=== PATIENT | male | born 2000 | race Caucasian/White ===

== ENCOUNTER 2025-01-28 03:04 | Emergency (ER) | payer OTHER, SELFPAY ==
[2025-01-28] VITALS (14 sets, daily range): BP systolic 110–129; BP diastolic 67–83; PULSE 77–113; RESP 19–31; TEMP 36.8–39.5; O2SAT 94–100
--- OUTSIDE RECORDS SUMMARY | 2025-01-28 03:06 | XMS_ITS | Clinical Summary ---
Author [place] [facility] [place] [address] Address [address] [place] [id number] Care Team Providers Care Trial Consultant Name Role Phone Unknown, Notinfile Primary Care Provider Unavail able Archie Blanco MD Unavailable [phone] Allergies No known active allergies Medications No known medications Active Problems No known active problems Social History Tobacco Use Types Packs/Day Years Used Date Smoking Tobacco: Every Day Vaping Personal Safety Answer Date Recorded Getting School Help Needed Not on file 01/20 Sex and Gender Information Value Date Recorded Sex Assigned at Not on file 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 Gender Identity Not on file Sexual Orientation Not on file Obstetrics History Last Filed Vital Signs Vital Sign Reading Time Taken Comments Blood Pressure 119/71 02/25/2022 7:19 PM CDT Pulse 99 02/25/2022 7:19 PM CDT Temperature 38.7 C (101.6 F) 02/25/2022 7:19 PM CDT Respiratory Rate 16 02/25/2022 7:19 PM CDT Oxygen Saturation 98% 02/25/2022 7:19 PM CDT Inhaled Oxygen Concentration - - Weight 90.7 kg (200 lb) 02/25/2022 7:19 PM CDT Height 177.8 cm (5' 10 ) 02/25/2022 7:19 PM CDT Body Mass Index 28.7 02/25/2022 7:19 PM CDT Plan of Treatment Health Maintenance Due Date Last Done Comments Depression Screening 1999 Hepatitis C Screening 1999 DTaP/Tdap/Td Vaccine (1 - Tdap) 2010 Varicella Vaccines (1 of 2 - 13+ 2-dose series) 2011 HPV Vaccines (1 - Male 3-dose series) 2014 Hepatitis B Screening 2017 Regular Well Visit/Exam 18-64 2017 Pneumococcal vaccine <65 (1 of 2 - PCV) 2018 Covid-19 Vaccine (2 - season) 07/27/202409/2021 Influenza Vaccine (#1) 2024 10/08/2014 Insurance [facility] EPO Care Teams Trial Consultant Relationship Specialty Start Date End Date Unknown, Notinfile PCP - General 02/25/22 Archie Blanco MD Family Medicine 02/25/22
--- OUTSIDE RECORDS SUMMARY | 2025-01-28 03:06 | XMS_ITS | Referral Summary ---
Author Organization [facility] [place] [address] Address [address] [place] [id number] Care Team Providers Care Supervisor Securities Vault Name Role Phone Unknown, Notinfile Primary Care Provider Unavail able Archie Blanco MD Unavailable [phone] Allergies No known active allergies Medications No known medications Active Problems No known active problems Social History Tobacco Use Types Packs/Day Years Used Date Smoking Tobacco: Every Day Vaping Personal Safety Answer Date Recorded Getting School Help Needed Not on file 01/20 Sex and Gender Information Value Date Recorded Sex Assigned at Not on file 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
[2025-01-28 05:52] LABS: Basophils Percent Auto 0.1 % (0.2-1.2); Hemoglobin 15.3 g/dL (14.0-18.0); Immature Granulocyte Absolute 0.03 K/mm3 (0.00-0.031); Immature Granulocyte Percent A 0.4 % (0-0.5); Lymphocytes Absolute Auto 0.45 K/mm3 (0.9-3.2); Lymphocytes Percent Auto 5.8 % (18.3-44.2); Mean Corpuscular HGB Conc 34.8 g/dl (32-36); Mean Corpuscular Hemoglobin 30.4 pg (26-34); Mean Corpuscular Volume 87.5 fl (80-100); Mean Platelet Volume 9.7 fl (7.4-10.4); Monocytes Absolute Auto 0.7 K/mm3 (0.1-0.6); Neutrophils Absolute Auto 6.6 K/mm3 (1.3-6.7); Neutrophils Percent Auto 84.7 % (45.5-73.1); Platelet Count Result 178 k/mm3 (150-375); Red Blood Count 5.03 M/mm3 (4.6-6.20); Red Cell Distribution Width 11.6 % (11.5-14.5); White Blood Count 7.8 K/mm3 (4.5-10.0)
[2025-01-28] MEDS: ONDANSETRON INJ 4 MG/2 ML VIAL IV PUSH (05:54)
[2025-01-28] MEDS: SODIUM CHLORIDE 0.9% IV 1,000 ML 999 ML IV CONT ×2 (05:54→07:29)
[2025-01-28 06:01] LABS: Alanine Aminotransferase 36 U/L (6-50); Albumin Level 5.2 g/dL (3.5-5.1); Alkaline Phosphatase 45 U/L (38-126); Anion Gap 13 mmol/L (4-12); Aspartate Amino Transferase 30 U/L (17-59); Bilirubin,Total 0.8 mg/dL (0.2-1.3); Blood Urea Nitrogen 12 mg/dL (9-20); Calcium 9.1 mg/dL (8.4-10.2); Carbon Dioxide 27 mmol/L (22-30); Chloride 96 mmol/L (98-107); Estimated CRCL calculation 139 ml/min; Estimated Glomerular Filt Rate > 60; Glucose 127 mg/dL (65-110); Lipase 91 U/L (23-300); Potassium 3.8 mmol/L (3.4-5.0); Sodium 136 mmol/L (137-145)
[2025-01-28 06:27] LABS: Influenza A QL RT-PCR Positive (Negative); Influenza B QL RT-PCR Negative (Negative); RSV RNA, RT-PCR Negative (Negative); SARS-CoV-2 RNA PCR Negative (Negative)
[2025-01-28 07:02] LABS: Add Urine Microscopic? YES; Appearance Urine Clear (Clear); Bacteria Urine None Seen /hpf; Bilirubin Urine Negative (Negative); Blood Urine Negative (Negative); Color Urine Dark Yellow (Yellow); Glucose Urine UA Negative (Negative); Ketones Urine Trace mg/dL (Negative); Leukocyte Esterase Ur Negative LEU/UL (Negative); Need Manual Microscopic Reviewed; Nitrate Urine Negative (Negative); Protein Urine 2+ mg/dL (Negative); RBC Urine 0-2 /hpf (0-2); Specific Grav Ur 1.034 (1.001-1.035); Squamous Epithelial Cell Urine None Seen /hpf (Few); Urobilinogen Urine 0.2 mg/dL (<2.0); WBC Urine 0-5 /hpf (0-3); pH Urine 5.5 (5.0-9.0)
[2025-01-28] MEDS: ACETAMINOPHEN 500 MG TABLET 1000 MG PO (07:29)
--- NOTE | 2025-01-28 07:29 | ED_ITS ---
HPI - General Adult General Chief complaint: Upper Respiratory Infection Stated complaint: i think i have the flu Time Seen by Provider: 01/28/25 06:59 History of Present Illness HPI narrative: 25-year-old male presenting ED for evaluation for viral symptoms. Patient reports symptoms started on Sunday. Patient presents to the ED complaining of fevers and chills. Patient denies any associated chest pain or shortness of breath. Patient denies any associated current nausea vomiting or diarrhea. Patient did have 2 episodes of emesis. 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 Mother No problems noted. Sibling No problems noted. Grandparent Diabetes mellitus Grandparent Diabetes mellitus Social History Social History Smoking status: Former smoker (quit smoking and vaping 7 months ago. ) Tobacco type: e-cigarettes/vaping Smoking end date: 04/26/23 Alcohol intake: current Alcohol use details: occasionally Substance use: current Substance use type: marijuana Last use: rarely Do You Feel Safe in your Home?: Yes Lack of Transportation: No Lack of Food: Never True Current Housing: I Have Housing Concerned About Future Housing: No Difficulty Paying Gas/Electric Bills: No Difficulty Paying for Meds: No Currently Unemployed: No Education: Bachelor's Degree Difficulty w/ Childcare or Family Care: No Exam 2 Narrative: APPEARANCE: Well appearing, no pain, no distress, well-nourished. HEAD: normocephalic, atraumatic. EYES: PERRLA/EOMI, conjunctivae clear. NOSE: Normal no drainage EARS:TMS clear with good light reflex. THROAT: Pharynx clear, no exudate. NECK: Supple. No adenopathy, no masses. RESPIRATORY: Airway patent, respirations nonlabored. Clear to auscultation bilaterally, no rales, rhonchi, wheezing. CARDIOVASCULAR: Regular rate and rhythm without murmurs rubs or gallops. ABDOMINAL: Soft, nontender, nondistended, normal bowel sounds MUSCULOSKELETAL: Moves all extremities. Strength/ROM intact, No edema, No calf tenderness. NEURO: Alert. Cranial nerves II through XII intact. Good gait. Good coordination SKIN: Warm, dry. Normal Color Course Vital Signs Vital signs: Vital Signs Temperature 102.7 F H 01/28/25 03:09 Pulse Rate 113 H 01/28/25 03:09 Respiratory Rate 22 H 01/28/25 03:09 Blood Pressure 129/74 01/28/25 03:09 Pulse Oximetry 94 01/28/25 03:09 Oxygen Delivery Room Air 01/28/25 03:09 Temperature 98.3 F 01/28/25 09:43 Pulse Rate 77 01/28/25 09:43 Respiratory Rate 20 01/28/25 09:43 Blood Pressure 115/67 01/28/25 09:43 Pulse Oximetry 98 01/28/25 09:43 Oxygen Delivery Room Air 01/28/25 03:09 Medical Decision Making MDM Narrative Medical decision making narrative: 25-year-old male present to emergency department for evaluation for fever body aches and fatigue. Patient was febrile with a temperature of 103.1. Patient was treated Toradol and Tylenol on repeat patient's temperature was decreased to 9.5. Patient was treated with 2 L of IV fluids. Patient did feel improved with treatment. Patient is being discharged to home. Differential Diagnosis Differential Diagnosis: COVID, RSV, influenza, pneumonia Vital Signs Vital Signs: Vital Signs Temperature 102.7 F H 01/28/25 03:09 Pulse Rate 113 H 01/28/25 03:09 Respiratory Rate 22 H 01/28/25 03:09 Blood Pressure 129/74 01/28/25 03:09 Pulse Oximetry 94 01/28/25 03:09 Oxygen Delivery Room Air 01/28/25 03:09 Temperature 98.3 F 01/28/25 09:43 Pulse Rate 77 01/28/25 09:43 Respiratory Rate 20 01/28/25 09:43 Blood Pressure 115/67 01/28/25 09:43 Pulse Oximetry 98 01/28/25 09:43 Oxygen Delivery Room Air 01/28/25 03:09 Lab Data Lab results reviewed: Yes I reviewed the patient's lab results. 01/28/25 05:42 01/28/25 05:42 Labs: Lab Results 01/28/25 01/28/25 Range/Units 05:42 06:48 WBC 7.8 (4.5-10.0) K/mm3 RBC 5.03 (4.6-6.20) M/mm3 Hgb 15.3 (14.0-18.0) g/dL Hct 44.0 (42.0-52.0) % MCV 87.5 (80-100) fl MCH 30.4 (26-34) pg MCHC 34.8 (32-36) g/dl RDW 11.6 (11.5-14.5) % Plt Count 178 (150-375) k/mm3 MPV 9.7 (7.4-10.4) fl Immature Gran % (Auto) 0.4 (0-0.5) % Neut % (Auto) 84.7 H (45.5-73.1) % Lymph % (Auto) 5.8 L (18.3-44.2) % [place] % (Auto) 9.0 H (2.6-8.5) % Eos % (Auto) 0.0 (0-4.4) % Baso % (Auto) 0.1 L (0.2-1.2) % Lymph # (Auto) 0.45 L (0.9-3.2) K/mm3 [place] # (Auto) 0.7 H (0.1-0.6) K/mm3 Eos # (Auto) 0.0 (0-0.3) K/mm3 Baso # (Auto) 0.0 (0.0-0.1) K/mm3 Abs Immat Gran (auto) 0.03 (0.00-0.031) K/mm3 Absolute Neuts (auto) 6.6 (1.3-6.7) K/mm3 Absolute Nucleated RBC 0.000 (0.0-0.012) K/mm3 Nucleated RBC % 0.0 (0.0-0.2) % Sodium 136 L (137-145) mmol/L Potassium 3.8 (3.4-5.0) mmol/L Chloride 96 L (98-107) mmol/L Carbon Dioxide 27 (22-30) mmol/L Anion Gap 13 H (4-12) mmol/L BUN 12 (9-20) mg/dL Creatinine 0.83 (0.7-1.3) mg/dL Estim Creat Clear Calc 139 ml/min Estimated GFR > 60 (59 - ) Glucose 127 H (65-110) mg/dL Calcium 9.1 (8.4-10.2) mg/dL Total Bilirubin 0.8 (0.2-1.3) mg/dL AST 30 (17-59) U/L ALT 36 (6-50) U/L Alkaline Phosphatase 45 (38-126) U/L Total Protein 9.0 H (6.3-8.2) g/dL Albumin 5.2 H (3.5-5.1) g/dL Lipase 91 (23-300) U/L Urine Color Dark yellow (Yellow) Urine Appearance Clear (Clear) Urine pH 5.5 (5.0-9.0) Ur Specific [place] 1.034 (1.001-1.035) Urine Protein 2+ H (Negative) mg/dL Urine Glucose (UA) Negative (Negative) mg/dL Urine Ketones Trace H (Negative) mg/dL Ur Blood (Man) Negative (Negative) Urine Nitrate Negative (Negative) Urine Bilirubin Negative (Negative) Urine Urobilinogen 0.2 (<2.0) mg/dL Add Ur Microanalysis Reviewed Leukocyte Esterase Rfl Negative (Negative) LAURYN/UL Urine RBC 0-2 (0-2) /hpf Urine WBC 0-5 (0-3) /hpf Ur Squamous Epith Cells None seen (Few) /hpf Urine Bacteria None seen /hpf Urine Casts 3-5 Influenza A (RT-PCR) Positive A (Negative) Influenza B (RT-PCR) Negative (Negative) RSV (RT-PCR) Negative (Negative) SARS-CoV-2 RNA (RT-PCR) Negative (Negative) Discharge Plan Discharge Clinical Impression: Influenza A Patient Disposition: Home, Self-Care Condition: Stable Instructions: Antibiotic Form, Influenza (ED) Additional Instructions: Tylenol and ibuprofen for fever or body aches. Albuterol inhaler for shortness of breath, Tessalon Perles for cough. Drink plenty of fluids. Have close follow-up with your primary care physician. If you have any worsening symptoms and please call or return to the emergency department. Patient Language: Hebrew Prescriptions: New benzonatate 100 mg capsule 100 mg PO TID PRN (Reason: cough) Qty: 14 0RF albuterol sulfate 90 mcg/actuation HFA aerosol inhaler 1 puff inhalation QID Qty: 6.7 0RF acetaminophen [Tylenol 8 Hour] 650 mg tablet extended release 650 mg PO Q8H PRN (Reason: fever or pain) Qty: 30 0RF ibuprofen 600 mg tablet 600 mg PO Q6H PRN (Reason: fever or pain) Qty: 30 0RF Follow-up/Referrals: Archie Blanco MD [Primary Care Provider] -
[2025-01-28] MEDS: KETOROLAC 15 MG/ML VIAL (*BKC) IV PUSH (08:25)
--- OUTSIDE RECORDS SUMMARY | 2025-01-28 08:37 | XMS_ITS | Clinical Summary ---
Author Organization [facility] [place] [address] Address [address] [place] [phone] Care Team Providers Care Bioinformatics Computer Scientist Name Role Phone Unknown, Notinfile Primary Care Provider Unavail able Archie Blanco MD Unavailable [phone] Allergies No known active allergies Medications No known medications Active Problems No known active problems Social History Tobacco Use Types Packs/Day Years Used Date Smoking Tobacco: Every Day Vaping Personal Safety Answer Date Recorded Getting School Help Needed Not on file 01/20 Sex and Gender Information Value Date Recorded Sex Assigned at Not on file 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
--- OUTSIDE RECORDS SUMMARY | 2025-01-28 08:37 | XMS_ITS | Referral Summary ---
Author Organization [facility] [place] [address] Address [address] [place] [id number] Care Team Providers Care Lump Roller Name Role Phone Unknown, Notinfile Primary Care Provider Unavail able Archie Blanco MD Unavailable [phone] Allergies No known active allergies Medications No known medications Active Problems No known active problems Social History Tobacco Use Types Packs/Day Years Used Date Smoking Tobacco: Every Day Vaping Personal Safety Answer Date Recorded Getting School Help Needed Not on file 01/20 Sex and Gender Information Value Date Recorded Sex Assigned at Not on file 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
== END 2025-01-28 09:51 | disposition home or self-care (01) ==
PROVIDERS: Emergency Medicine; Emergency Provider Emergency Medicine; PCP Family Medicine
DX: J10.1 Influenza due to other identified influenza virus with other respiratory manifestations (principal); Z20.822 Contact with and (suspected) exposure to COVID-19; E88.810 Metabolic syndrome; Z86.16 Personal history of COVID-19; Z87.891 Personal history of nicotine dependence
CPT/HCPCS: 36415; 80053; 81001; 83690; 85025; 87637; 96361; 96374; 96375; 99284; A9270; J1885; J2405; J7030

== ENCOUNTER 2025-06-09 15:29 | Outpatient (CLI) | payer OTHER, SELFPAY ==
--- NOTE | ~2025-06-09 | XR_ITS ---
Left wrist Technique: PA, oblique, lateral, and ulnar deviation views were obtained. Clinical History: Pain Findings: No acute fracture or dislocation is seen. Osseous alignment is anatomic. Joint spaces are p reserved. Soft tissues are unremarkable. Impression: Unremarkable left wrist radiographs. Reviewed, dictated and finalized at location . Impression: Unremarkable left wrist radiographs.
== END 2025-06-09 15:30 | disposition home or self-care (01) ==
LOC: GOSHIMG 15:29
PROVIDERS: PCP Nurse Practitioner Family; Visit Provider Nurse Practitioner Family
DX: M25.532 Pain in left wrist (principal)
CPT/HCPCS: 73110